=== PATIENT | female | born 1995 | race Caucasian/White ===

== ENCOUNTER 2022-03-18 10:59 | Emergency (ER) | payer OTHER ==
[2022-03-18 11:26] VITALS: BMI 28.3
[2022-03-18 12:29] LABS: PH,URINE >= 9.0 (5.0-8.0); URINE APPEARANCE CLOUDY; URINE BILIRUBIN NEGATIVE (NEGATIVE); URINE COLOR YELLOW; URINE GLUCOSE (UA) NEGATIVE (NEGATIVE); URINE KETONE NEGATIVE (NEGATIVE); URINE LEUK ESTERASE NEGATIVE (NEGATIVE); URINE NITRITE NEGATIVE (NEGATIVE); URINE PROTEIN NEGATIVE (NEGATIVE); URINE UROBILINOGEN 0.2 mg/dL (0.2-1.0)
[2022-03-18 12:30] LABS: BASO % 0.6 % (0-2.0); EOS % 1.3 % (0-4.5); HEMATOCRIT 38.5 % (32.4-45.2); HEMOGLOBIN 13.1 GM/dL (10.7-15.3); LYMPH % 24.9 % (8-40); MCH 29.7 pg (25.7-33.7); MCHC 34.1 g/dl (32.0-36.0); MEAN CELL VOLUME 87.3 fl (80-96); MEAN PLT VOLUME 9.8 fl (7.5-11.1); MONO % 7.6 % (3.8-10.2); NEUT % 65.6 % (42.8-82.8); PLATELET COUNT 280 10^3/uL (134-434); RBC 4.41 M/mm3 (3.60-5.2); RDW 12.5 % (11.6-15.6); WHITE BLOOD COUNT 10.2 K/mm3 (4.0-10.0)
[2022-03-18 15:37] VITALS: BP 99/59; PULSE 73; RESP 20; TEMP 98.2
== END 2022-03-18 16:22 | disposition home or self-care (01) ==
LOC: JER 10:59
DX: O20.0 Threatened abortion (principal); Z3A.08 8 weeks gestation of pregnancy
CPT/HCPCS: 36415; 76830-TC; 81003; 84702; 84703; 85025; 86850; 86900; 86901; 87086; 99284-25